=== PATIENT | male | born 1945 | race Caucasian/White ===

== ENCOUNTER → 2016-12-29 | Outpatient (CLI) | payer OTHER | LOC: BHLMT 08:30 | PROVIDERS: ATTEND Internal Medicine Cardiovascular Disease | DX: I25.10 Atherosclerotic heart disease of native coronary artery without angina pectoris (principal) | CPT/HCPCS: 78452; 93017; A9500 ==

== ENCOUNTER 2017-12-17 14:15 | Observation (INO) | payer OTHER ==
--- NOTE | 2017-12-17 14:20 | EDPHY ---
HPI/HX/ROS/PE/MDM Narrative: CHIEF COMPLAINT: Chest pain HPI: This patient is a 72 year old male with history of CAD s/p stent placement complaining of chest pain. This morning, he was at the gym doing his normal cardio routine, first ski machine and then stationary bike. While biking, about two hours prior to arrival, he developed sternal pressure. He rates his discomfort at 6/10 severity initially. He stopped biking and sat down, and after 10 minutes this discomfort resolved to 3/10. He went home to rest more, but the pressure remained steady. Two years ago, the patient had two stents placed following a similar presentation, and he states his symptoms were less severe at that time than today. He visited urgent care, and staff there administered aspirin and called EMS given the patient's history of stent placement due to LAD occlusion. When EMS arrived, the pain had completely resolved. He currently feels well, no chest pain, shortness of breath, dizziness , or nausea. The patient does have history of hypertension and hyperlipidemia. He takes daily ASA 81mg. He denies any recent trauma or illness, and has not had any other recent cardiac symptoms. REVIEW OF SYSTEMS: Aside from elements discussed in the HPI, a comprehensive 10-point review of systems was reviewed and is negative. PMH: Hypertension. Hyperlipidemia. CAD s/p stent placement x 2. SOCIAL HISTORY: Retired. Department Clinician: Dr. Roth. Lives in [place]. PHYSICAL EXAM: General:Patient is alert, in no acute distress. ENT:Eyes are normal to inspection. ENT inspection normal. Neck: Normal inspection. Full range of motion. Respiratory:No respiratory distress. Breath sounds normal bilaterally. Cardiovascular: Regular rate and rhythm. Strong peripheral pulses. Normal cap refill. Abdomen:The abdomen is nontender to palpation. There are no peritoneal signs. There are normal bowel sounds. Back: Normal to inspection. No tenderness to palpation. Skin: Normal color. No rash. Warm and dry. Extremities: Normal appearance. Full range of motion. Neuro: Oriented x3. Normal motor function. Normal sensory function. ED Course: 72 y/o male with history of hypertension, hyperlipidemia, and CAD s/p stent placement presents with chest pain onset two hours prior to arrival, now resolved. Exam is unremarkable. Plan for EKG, chest x-ray, labs including CBC, chemistries, Troponin. EKG was ordered and interpreted by myself. Please see Opbeat system for official reading. Troponin negative. Chest x-ray negative for acute processes. 14:[address] Zarate, video recorder mechanic. He recommends admission for this patient. 15:15 Consulted with hospitalist service. Dr. Rojo accepts admission for chest pain. MDM: I see no evidence of ACS, PTX, PNA, TAD or PE. This patient presents with exertional chest pain that is concerning in setting of prior known CAD and stents. - Data Points Imaging: I viewed and interpreted images myself Laboratory Results: Laboratory Results 12/17/17 14:15 12/17/17 14:15 12/17/17 12/17/17 12/17/17 14:15 14:15 14:15 WBC 13.33 10^3/uL H 10^3/uL (3.80-9.50) RBC 5.31 10^6/uL 10^6/uL (4.40-6.38) Hgb 17.2 g/dL g/dL (13.7-17.5) Hct 51.4 % H % (40.0-51.0) MCV 96.8 fL fL (81.5-99.8) MCH 32.4 pg pg (27.9-34.1) MCHC 33.5 g/dL g/dL (32.4-36.7) RDW 12.2 % % (11.5-15.2) Plt Count 237 10^3/uL 10^3/uL (150-400) MPV 11.3 fL fL (8.7-11.7) Neut % (Auto) 71.4 % % (39.3-74.2) Lymph % (Auto) 18.7 % % (15.0-45.0) [place] % (Auto) 8.2 % % (4.5-13.0) Eos % (Auto) 0.8 % % (0.6-7.6) Baso % (Auto) 0.5 % % (0.3-1.7) Nucleat RBC Rel Count 0.0 % % (0.0-0.2) Absolute Neuts (auto) 9.52 10^3/uL H 10^3/uL (1.70-6.50) Absolute Lymphs (auto) 2.49 10^3/uL 10^3/uL (1.00-3.00) Absolute Monos (auto) 1.09 10^3/uL H 10^3/uL (0.30-0.80) Absolute Eos (auto) 0.11 10^3/uL 10^3/uL (0.03-0.40) Absolute Basos (auto) 0.07 10^3/uL 10^3/uL (0.02-0.10) Absolute Nucleated RBC 0.00 10^3/uL 10^3/uL (0-0.01) Immature Gran % 0.4 % % (0.0-1.1) Immature Gran # 0.05 10^3/uL 10^3/uL (0.00-0.10) PT 13.6 SEC SEC (12.0-15.0) INR 1.02 (0.83-1.16) APTT 25.2 SEC SEC (23.0-38.0) D-Dimer Pending Heparin Anti-Xa, Unfract Pending Sodium 142 mEq/L mEq/L (135-145) Potassium 4.4 mEq/L mEq/L (3.5-5.2) Chloride 100 mEq/L mEq/L (97-110) Carbon Dioxide 29 mEq/l mEq/l (22-31) Anion Gap 13 mEq/L mEq/L (8-16) BUN 18 mg/dL mg/dL (7-23) Creatinine 1.1 mg/dL mg/dL (0.7-1.3) Estimated GFR > 60 Glucose 101 mg/dL H mg/dL (70-100) Calcium 10.3 mg/dL mg/dL (8.5-10.4) Troponin I < 0.012 ng/mL ng/mL (0.000-0.034) General Time Seen by Provider: 12/17/17 14:17 Initial Vital Signs: Initial Vital Signs Temperature (C) 37 C 12/17/17 14:15 Heart Rate 71 12/17/17 14:15 Respiratory Rate 20 12/17/17 14:15 Blood Pressure 158/91 H 12/17/17 14:15 O2 Sat (%) 98 12/17/17 14:15 O2 Delivery Mode Room Air Allergies/Adverse Reactions: No Known Allergies Allergy (Verified 03/09/13 06:40) Home Medications: Medication Instructions Recorded Losartan Potassium [Cozaar 50 mg 50 mg PO HS 03/09/13 (*)] Multivitamins [Multivitamin (*)] 1 each PO DAILY 03/09/13 Aspirin EC [Aspirin EC 81 mg (*)] 81 mg PO DAILY 12/17/17 Bupropion HCl [Wellbutrin Sr] 200 mg PO DAILY 12/17/17 Ezetimibe [Zetia 10 MG (*)] 10 mg PO DAILY 12/17/17 Finasteride [Proscar 5 MG (*)] 5 mg PO DAILY 12/17/17 Rosuvastatin Calcium [Crestor 40mg 40 mg PO HS 12/17/17 (*)] Clopidogrel Bisulfate [Plavix (*)] 75 mg PO DAILY #30 tab 12/18/17 Metoprolol Succinate Xr [Toprol Xl 12.5 mg PO DAILY #30 tab 12/18/17 25 mg (*)] Departure - Departure Disposition: [facility] Inpatient Acute Clinical Impression: Chest pain Qualifiers: Chest pain type: other chest pain Qualified Code(s): R07.89 - Other chest pain Condition: Fair Report Scribed for: Lino Castro Report Scribed by: Sherlyn Sen Date of Report: 12/17/17 Time of Report: 15:29 Physician Review and Approval Statement: Portions of this note were transcribed by an ED scribe. I personally performed the history, physical exam, and medical decision making; and confirm the accuracy of the information in the transcribed note.
--- NOTE | 2017-12-17 14:30 | CPEKG ---
Heart Rate: 66 RR Interval: 909 P-R Interval: 172 QRSD Interval: 78 QT Interval: 376 QTC Interval: 394 P [place]: -29 QRS [place]: 61 T Wave [place]: -28 EKG Severity - BORDERLINE ECG - EKG Impression: SINUS RHYTHM EKG Impression: BORDERLINE T ABNORMALITIES, DIFFUSE LEADS Electronically Signed By: Candice Whipple 17-Dec-2017 23:14:40
[2017-12-17 14:33] LABS: PLATELET COUNT 237 10^3/uL (150-400)
[2017-12-17] MEDS ORDERED: ACETAMINOPHEN 325 MG TAB PO PRN (15:21)
[2017-12-17] MEDS ORDERED: ONDANSETRON DISINTEGRATING 4 MG TAB PO PRN (15:21)
[2017-12-17] MEDS ORDERED: ONDANSETRON 4 MG/2 ML VIAL IVP PRN (15:21)
[2017-12-17] MEDS ORDERED: D5W 1/2 NS 1,000 ML IV SCH (15:30)
--- NOTE | 2017-12-17 16:03 | PDGENHP ---
History and Physical - Chief Complaint Acute chest pain - History of Present Illness Primary Cardiology: Dr. Roth HPI: 72 yo M p/w acute chest pain characterized as a 6/10 pain located in the sternal region, very similar in quality to that experienced in 2012 prior to his LAD stenting. Onset at 1 p.m. after 30-45 minutes of cardio exercise, alleviated by rest after approx 5-10 minutes, but did not completely aniya until approx 60 minutes after onset. Prior to episode, he was otherwise feeling well, has not noted any recent reduction in exercise tolerance. He has been experiencing "cold" symptoms for approx 1 week, including associated rhinorrhea and mild cough. He has been adherent to his home Rx. He has not been taking any NSAIDs. History Information - Allergies/Home Medication List Allergies/Adverse Reactions: No Known Allergies Allergy (Verified 03/09/13 06:40) Home Medications: Losartan Potassium [Cozaar 50 mg (RX)] 50 mg PO HS 03/09/13 [Last Taken 12/16/17 ] Multivitamins [Tab-A-Lacie] 1 each PO DAILY 03/09/13 [Last Taken 12/16/17] Aspirin EC [Aspirin EC 81 mg (*)] 81 mg PO DAILY 12/17/17 [Last Taken 12/16/17] Bupropion HCl [Wellbutrin Sr] 200 mg PO DAILY 12/17/17 [Last Taken 12/16/17] Ezetimibe [Zetia 10 MG (*)] 10 mg PO DAILY 12/17/17 [Last Taken 12/16/17] Finasteride [Proscar 5 MG (*)] 5 mg PO DAILY 12/17/17 [Last Taken 12/16/17] Rosuvastatin Calcium [Crestor 40mg (*)] 40 mg PO HS 12/17/17 [Last Taken ] I have personally reviewed and updated: family history, medical history, social history, surgical history - Past Medical History coronary artery disease (w/ 2 LAD stents 2012), hypertension, hyperlipidemia Additional medical history: BPH - Surgical History Additional surgical history: colonoscopy w/in past 6 months, polyps - Family History Additional family history: father CHF 77, no VTE - Social History Smoking Status: Never smoked Alcohol Use: Occasionally (2 drinks/night, no EtOH withdraw) Drug Use: None Additional social history: good cardiovascular exercise tolerance on a daily basis, no recent lengthy travel Review of Systems Review of Systems: ROS: 10pt was reviewed & negative except for what was stated in HPI & below EENMT: Reports: other (rhinorrhea) Cardiac: Reports: chest pain Respiratory: Reports: cough Physical Exam Physical Exam: Temp Pulse Resp BP Pulse Ox 37 C 71 20 158/91 H 98 12/17/17 14:15 12/17/17 14:15 12/17/17 14:15 12/17/17 14:15 12/17/17 14:15 Constitutional: no apparent distress, appears nourished, not in pain Eyes: PERRL, anicteric sclera, EOMI Ears, Nose, Mouth, Throat: moist mucous membranes, hearing normal, ears appear normal, no oral mucosal ulcers Cardiovascular: regular rate and rhythym, no murmur, rub, or gallop, No edema Respiratory: no respiratory distress, no rales or rhonchi, clear to auscultation Gastrointestinal: normoactive bowel sounds, soft, non-tender abdomen, no palpable masses Genitourinary: no bladder fullness, no bladder tenderness Skin: warm, other (several benign appearing hyperplastic nevi back), No abrasion , No rash Neurologic: AAOx3, sensation intact bilaterally, No weakness Psychiatric: interacting appropriately, not anxious, not encephalopathic, thought process linear Lab Data & Imaging Review 12/17/17 14:15 12/17/17 14:15 WBC 13.33 10^3/uL (3.80-9.50) H 12/17/17 14:15 RBC 5.31 10^6/uL (4.40-6.38) 12/17/17 14:15 Hgb 17.2 g/dL (13.7-17.5) 12/17/17 14:15 Hct 51.4 % (40.0-51.0) H 12/17/17 14:15 MCV 96.8 fL (81.5-99.8) 12/17/17 14:15 MCH 32.4 pg (27.9-34.1) 12/17/17 14:15 MCHC 33.5 g/dL (32.4-36.7) 12/17/17 14:15 RDW 12.2 % (11.5-15.2) 12/17/17 14:15 Plt Count 237 10^3/uL (150-400) 12/17/17 14:15 MPV 11.3 fL (8.7-11.7) 12/17/17 14:15 Neut % (Auto) 71.4 % (39.3-74.2) 12/17/17 14:15 Lymph % (Auto) 18.7 % (15.0-45.0) 12/17/17 14:15 [place] % (Auto) 8.2 % (4.5-13.0) 12/17/17 14:15 Eos % (Auto) 0.8 % (0.6-7.6) 12/17/17 14:15 Baso % (Auto) 0.5 % (0.3-1.7) 12/17/17 14:15 Nucleat RBC Rel Count 0.0 % (0.0-0.2) 12/17/17 14:15 Absolute Neuts (auto) 9.52 10^3/uL (1.70-6.50) H 12/17/17 14:15 Absolute Lymphs (auto) 2.49 10^3/uL (1.00-3.00) 12/17/17 14:15 Absolute Monos (auto) 1.09 10^3/uL (0.30-0.80) H 12/17/17 14:15 Absolute Eos (auto) 0.11 10^3/uL (0.03-0.40) 12/17/17 14:15 Absolute Basos (auto) 0.07 10^3/uL (0.02-0.10) 12/17/17 14:15 Absolute Nucleated RBC 0.00 10^3/uL (0-0.01) 12/17/17 14:15 Immature Gran % 0.4 % (0.0-1.1) 12/17/17 14:15 Immature Gran # 0.05 10^3/uL (0.00-0.10) 12/17/17 14:15 Sodium 142 mEq/L (135-145) 12/17/17 14:15 Potassium 4.4 mEq/L (3.5-5.2) 12/17/17 14:15 Chloride 100 mEq/L (97-110) 12/17/17 14:15 Carbon Dioxide 29 mEq/l (22-31) 12/17/17 14:15 Anion Gap 13 mEq/L (8-16) 12/17/17 14:15 BUN 18 mg/dL (7-23) 12/17/17 14:15 Creatinine 1.1 mg/dL (0.7-1.3) 12/17/17 14:15 Estimated GFR > 60 12/17/17 14:15 Glucose 101 mg/dL (70-100) H 12/17/17 14:15 Calcium 10.3 mg/dL (8.5-10.4) 12/17/17 14:15 Troponin I < 0.012 ng/mL (0.000-0.034) 12/17/17 14:15 Visualized and Interpreted Chest x-ray results: Yes Chest X-Ray results: no infiltrate Visualized and Interpreted EKG results: Yes EKG Interpretation: Positive for: other (TWI inferior and V5-V6, similar to EKG 2012) Assessment & Plan Assessment: 72 yo M p/w acute angina in setting of known CAD Plan: # Angina. Acute, new problem, further w/u indicated. Stable vs. Unstable, sx lingered beyond resting, but have now abated - reviewed outside records (03/10/13 DC Summary by Dari Dumont reporting indeterminate stress testing w/ normal nuc images, STD, underwent subsequent cath w/ 85-90% mid-LAD lesion but other vessels OK, preserved EF, received 2 stents) - d/w Dr. Zarate, we agreed to pursue cath in AM given resolution of pain - hep gtt, full dose ASA, bblocker, statin - check dimer to r/o VTE, monitor WBC - monitor on tele - NPO after MN # CAD. Cont home Rx, full dose ASA # BPH. Chronic, cont home Rx Diet. Cardiac, NPO after MN PPx. High risk, on hep gtt Code. Full, MDPOA Dispo. ADD 12/18, pending further work-up outlined above.
[2017-12-17] MEDS ORDERED: HEPARIN 10,000 UNIT/10 ML MDV (1,000 UNIT/ML) IVP PRN (16:17)
[2017-12-17] MEDS ORDERED: HEPARIN 10,000 UNIT/10 ML MDV (1,000 UNIT/ML) IVP ONE (16:17)
[2017-12-17] MEDS ORDERED: HEPARIN/DEXTROSE 500 ML IV SCH (16:30)
[2017-12-17 16:31] LABS: INR 1.02 (0.83-1.16); PROTIME(PATIENT) 13.6 SEC (12.0-15.0)
[2017-12-17] MEDS: METOPROLOL TARTRATE 25 MG TAB PO SCH ×2 (18:59→21:09)
[2017-12-17] MEDS ORDERED: ROSUVASTATIN CALCIUM 40 MG TAB PO SCH (21:00)
[2017-12-17] MEDS ORDERED: LOSARTAN POTASSIUM 50 MG TAB PO SCH (21:00)
[2017-12-17] MEDS ORDERED: NITROGLYCERIN 0.4 MG BTL SL PRN (22:27)
[2017-12-18 06:47] LABS: PLATELET COUNT 205 10^3/uL (150-400)
[2017-12-18] MEDS ORDERED: DIAZEPAM 5 MG TAB PO ONE (08:32)
[2017-12-18] MEDS ORDERED: FAMOTIDINE 20 MG TAB PO ONE (08:32)
[2017-12-18] MEDS ORDERED: TEMAZEPAM 15 MG CAP PO PRN (08:32)
[2017-12-18] MEDS ORDERED: diphenhydrAMINE 25 MG CAP PO ONE (08:32)
--- NOTE | 2017-12-18 08:34 | PDHPUP ---
History & Physical Update H&P update statement: This history and physical update is based on an assessment of the patient which was completed after admission or registration (within 24 hours), but prior to the surgery/procedure. H&P update: H&P reviewed & patient examined, no change in patient's condition since H&P completed
--- NOTE | 2017-12-18 08:35 | PDPROPOC ---
Sedation Plan of Care Sedation Plan of Care: vital signs stable, mental status noted, patient educated of risks, benefits, alternatives, patient can tolerate sedation ASA Classification: ASA 2 Planned drugs: fentanyl, midazolam Mallampati Score: Class 2 Mallampati Reference Image: Patient passed 3-3-2 rule?: Yes
[2017-12-18] MEDS ORDERED: NS 1,000 ML IV SCH (08:45)
[2017-12-18] MEDS ORDERED: FINASTERIDE 5 MG TAB PO SCH (09:00)
[2017-12-18] MEDS ORDERED: EZETIMIBE 10 MG TAB PO SCH (09:00)
[2017-12-18] MEDS ORDERED: MULTIVITAMINS 1 EACH TAB PO SCH (09:00)
[2017-12-18] MEDS ORDERED: BUPROPION HCL 200 MG PO SCH (09:00)
[2017-12-18] MEDS ORDERED: buPROPion SR 100 MG TAB PO SCH (09:00)
[2017-12-18] MEDS ORDERED: ASPIRIN EC 325 MG TAB PO SCH (09:00)
--- NOTE | 2017-12-18 09:01 | CPEKG ---
Heart Rate: 61 RR Interval: 984 P-R Interval: 168 QRSD Interval: 88 QT Interval: 404 QTC Interval: 407 P [place]: 8 QRS [place]: 77 T Wave [place]: 2 EKG Severity - ABNORMAL ECG - EKG Impression: SINUS RHYTHM EKG Impression: CONSIDER ANTEROSEPTAL INFARCT EKG Impression: BORDERLINE T WAVE ABNORMALITIES Electronically Signed By: Ernie Herron 18-Dec-2017 09:31:15
--- NOTE | 2017-12-18 09:16 | GCON ---
[f rep st] CONSULTATION CARDIOLOGY CONSULT DATE OF CONSULTATION: 12/18/2017 PRIMARY LVN LPN: Dr. Morgan Roth. CHIEF COMPLAINT: Chest pain. HISTORY OF PRESENT ILLNESS: We were asked by Dr. Rojo to visit with the patient. The patient is a 72-year-old male with hypertension, dyslipidemia, and known history of coronary artery disease. He had 2 PROMUS drug-eluting stents placed in the LAD in 2012 for symptoms of angina. He has done well since that time without symptoms. Yesterday, he was doing his usual workout at the gym. He had completed 30 minutes or so on the [employer] machine, and was on a stationary bike, when he had sudden onset of central chest pressure. This le ssened after resting, but did not completely resolve. He therefore went to urgent care, where he was still having some chest discomfort, so was sent to the ER. Ultimately, his chest pain resolved in [facility] ER. He was admitted and started on a heparin drip. He has not had any other cardiovascular sympt oms and, as mentioned, did not have symptoms since his 2013 stenting. REVIEW OF SYSTEMS: He has had a mild URI, which he believes is now resolving. Otherwise, a full 10- point review of systems is performed and is negative, except that which is outlined in history of pre sent illness. ALLERGIES: No known drug allergies. PAST MEDICAL HISTORY: 1. Coronary artery disease with LAD, PCI in 2012. 2. Hypertension. 3. Dyslipidemia. 4. BPH/abnormal PSA. 5. History of testicular mass. 6. History of colon polyps. OUTPATIENT MEDICATIONS: Aspirin 81 mg daily, Wellbutrin, Zetia 10 mg daily, Proscar 5 mg daily, Losa rtan 50 mg daily, multivitamin, and Crestor 40 mg daily. In the hospital, he has received IV heparin and low-dose metoprolol. SOCIAL HISTORY: The patient does not smoke cigarettes. He drinks alcohol in moderation. He is zuleika ied. He is retired from [employer]. FAMILY HISTORY: Father had heart failure. PHYSICAL EXAM: VITAL SIGNS: Blood pressure 107/65, heart rate 61, oxygen saturation 93% on room air . Respiratory rate is 16. He is afebrile. GENERAL: Well-appearing older male, in no acute distres s. HEENT: Sclerae clear and free of jaundice. Mucous membranes are moist. He does have some water y discharge from both eyes. Normocephalic, atraumatic. CARDIOVASCULAR: JVP is less than 10. Carotids equal and 2+ without bruit. Regular rate and rhythm without murmur, rub, or gallop. LUNGS: Clear to auscultation without wheezes, rhonchi, or rales. ABDOMEN: Soft, nontender, nondistended, without bruits, masses, or hepatosplenomegaly. EXTREMITIES: Warm and well perfused without cyanosi s, clubbing, or edema. Intact distal pulses. NEURO: Alert and oriented x3 without gross focal neur ologic deficits. LABORATORY DATA: White count 10.6, hematocrit 47.9, and platelets 205. INR 1.02. D-dimer is negati ve. Basic metabolic panel is normal, except for a glucose of 101. LFTs are normal. Troponin initia lly was negative, second troponin 0.069, third troponin 0.035. LDL cholesterol is pending. EKG reviewed by me shows sinus rhythm with inferior and lateral T-wave abnormalities. This is not si gnificantly different from 2013, but is slightly different compared with an interim EKG from our offi ce. Chest x-ray reviewed by me shows no acute cardiopulmonary process. LAD stent is seen. He did have a nuclear stress test in December 2016 showing some inferior ischemia and a preserved eje ction fraction. ASSESSMENT AND PLAN: A 72-year-old male with known coronary artery disease, hypertension, dyslipidem ia. He is admitted with unstable angina. Currently symptom free on a heparin drip. His troponin is minimally elevated. 1. Coronary artery disease and unstable angina: He has not appropriate for stress testing. He does require coronary angiography for further risk stratification. The risks, benefits, and alternatives of this procedure were discussed with the patient. He is willing to proceed. This will be schedule d for this morning. More recommendations to follow the results of his coronary angiogram. He has be en given aspirin and his statin. 2. Hypertension: Well controlled. Low-dose beta kurtis has been added. We will have to watch his heart rate, as it is slightly low at this time. 3. Dyslipidemia: LDL is pending. He is on high-dose Crestor, as well as Zetia. 4. Elevated glucose: Check hemoglobin A1c. Thank you for allowing us to participate in the patient's care. We will follow with you. /[id number]/MODL
[2017-12-18] MEDS ORDERED: MIDAZOLAM 2 MG/2 ML VIAL ONE (09:33)
[2017-12-18] MEDS ORDERED: LIDOCAINE 1% 300 MG/30 ML SDV ONE (09:33)
[2017-12-18] MEDS ORDERED: fentaNYL 100 MCG/2 ML INJ ONE (09:33)
[2017-12-18] MEDS ORDERED: IOPAMIDOL (ISOVUE-370) 150 ML BTL IV ONE (09:34)
[2017-12-18] MEDS: METOPROLOL TARTRATE 25 MG TAB PO SCH (10:01)
[2017-12-18] MEDS ORDERED: ATROPINE SULFATE 1 MG/10 ML SYR IVP PRN (10:42)
[2017-12-18] MEDS ORDERED: CLOPIDOGREL BISULFATE 75 MG TAB PO SCH (10:45)
--- NOTE | 2017-12-18 10:47 | PDDXCAT ---
Diagnostic Cath Note - . Date: 12/18/17 Art Tracer: Yakelin Indication: CCC Class III and IV angina on medical treatment - Procedure Access: right groin Procedure: left heart catheterization, coronary angiography, left ventriculogram - Materials Left Heart Cath size: 6F Left Heart Cath materials: standard multipack (JL4, JR4, pigtail) - Findings-Left Heart Catheterization LM: normal. Short and bifurcates into LAD and LCx. No significant CAD LAD: 2 previously placed stents are widely patent. one diagonal that is normal LCX: dominant. One large OM. No significant CAD RCA: nondominant. Nonselective injection. No significant CAD EDP: 12 LVEF: 60 %. Normal wall motion - Findings-Right Heart Catheterization AO: 92/51. No Complications: none Estimated blood loss: <50ml Closure method: Angioseal Assessment: Patent LAD stents with no other CAD. Normal LVEF and normal filling pressures. Plan: Will add Plavix to ASA 81 mg daily as the patient did have minimal troponin elevation. DDx: includes plaque rupture with no angiographic sequelae; viral insult. He may be discharged later today if stable. Patient Problems: Problems Problem Status Onset Chest pain Acute
[2017-12-18] MEDS ORDERED: METOPROLOL SUCCINATE XR 25 MG TAB PO SCH (11:45)
[2017-12-18 13:27] VITALS: RESP 18; TEMP 97.7
[2017-12-18 14:16] VITALS: BP 120/70; PULSE 56; O2SAT 94
--- NOTE | 2017-12-18 15:55 | ASDISCHSUM ---
Discharge Information Plan Status:Home with No Needs Medically Cleared to Leave:12/17/2017 Discharge Date:12/18/2017 03:24 PM CM D/C Disposition:Home, Routine, Self-Care ADT D/C Disposition:Home, Routine, Self-Care Projected Discharge Date:12/18/2017 03:24 PM Transportation at D/C:Family Discharge Delay Reason: Follow-Up Date:12/18/2017 03:24 PM Discharge Slot: Final Diagnosis: Placement Information Patient Contact Information Contact Name:VINOD Relationship: Address:[address] City:[place] Alternate Phone: State/Zip Code:[place] [address] Email: Financial Information Financial Class:Medicare Primary Plan Desc:MEDICARE OUTPATIENT Primary Plan Number:[id number] Secondary Plan Desc:[employer] TOTAL CHOICE MDCRE Secondary Plan Number:[id number] Assessment Information Intervention Information
--- NOTE | 2017-12-18 15:58 | ASMTLACE ---
LACE Length of stay for Answers: Less than 1 day current admission Acuity / Level of Answers: No Care: Did the patient have an inpatient admission? Comorbidities - select Answers: Coronary Atery Disease all that apply # of Emergency department Answers: 1-2 visits in the last 6 months Score: 3 Date Signed: 12/18/2017 03:57 PM Electronically Signed By:NATHALIE Andre
[2017-12-19] MEDS ORDERED: ASPIRIN 81 MG CHEWABLE TAB PO SCH (09:00)
--- NOTE | 2017-12-19 13:26 | GDS ---
[f rep st] DISCHARGE SUMMARY NEW AND ACUTE DIAGNOSES: 1. Acute angina with very slight elevation of troponin, without evidence of ECG ischemia. 2. Hypertension. CHRONIC DIAGNOSES: Known coronary artery disease dating to 2012, hypertension, and hyperlipidemia. CONSULTATIONS: Cardiology. PROCEDURES: Cardiac catheterization and angiography showing 2 widely open stents without evidence of stenosis. HOSPITAL COURSE: A 72-year-old male who presented with a complaint of chest pain following exertion. Initial ECG did not show signs of ischemia, and his initial troponin was negative. He was placed on a heparin drip and underwent cardiac catheterization which showed 2 widely open stents that had been placed in 2012 and no evidence of coronary occlusion. The discussion with Cardiology indicated that it is possible he ruptured a plaque, as there was no evidence of occlusion at the time of angiography. Cardiology felt that he should be started on a beta kurtis with the addition of Plavix, along with low-dose aspirin. DISCHARGE MEDICATIONS: New medications: Toprol 25 mg daily, Plavix 75 mg a day. Continued medications: ASA 81 mg a day, multivitamin, Cozaar 50 mg h.s., Wellbutrin 200 mg daily, Proscar 5 mg daily, rosuvastatin 40 mg h.s., Zetia 10 mg daily. PLAN: Darryn has been cleared to engage in moderate exercise. He is to keep his heart rate at approximately 120 and lower for the next 2-3 weeks. His followup will be with Dr. Liliana Hamlin for [facility], and his PCP is Dr. Vik Florence. TIME: Time of the dictation is 45 minutes, greater than 50% to in house counsel and coordinate care. /[id number]/MODL MTDD
== END 2017-12-18 15:24 | disposition home or self-care (01) ==
LOC: EDUNIT# → F2W 18:12
PROVIDERS: ADMIT Internal Medicine; ATTEND Internal Medicine
PROC: 4A023N7 Measurement of Cardiac Sampling and Pressure, Left Heart, Percutaneous Approach (ICD-10-PCS; principal; 2017-12-17)
PROC: B2151ZZ Fluoroscopy of Left Heart using Low Osmolar Contrast (ICD-10-PCS; principal; 2017-12-17)
PROC: B2111ZZ Fluoroscopy of Multiple Coronary Arteries using Low Osmolar Contrast (ICD-10-PCS; principal; 2017-12-17)
DX: I25.119 Atherosclerotic heart disease of native coronary artery with unspecified angina pectoris (principal); I10 Essential (primary) hypertension; E78.5 Hyperlipidemia, unspecified; N40.0 Benign prostatic hyperplasia without lower urinary tract symptoms; Z95.5 Presence of coronary angioplasty implant and graft; Z86.010 Personal history of colon polyps
CPT/HCPCS: 71046; 93005; 93458; 99285; C1760; G0378; J1644; J2250; J3010; Q9967; 85520-90